=== PATIENT | male | born 1950 | race Caucasian/White ===

== ENCOUNTER 2023-08-20 22:02 | Outpatient (CLI) | payer OTHER | END 2023-08-20 23:59 | disposition critical access hospital (66) | LOC: EMS 22:02 | DX: R55 Syncope and collapse (principal); R23.1 Pallor | CPT/HCPCS: A0425; A0427 ==

== ENCOUNTER 2023-08-20 22:15 | Emergency (ER) | payer MEDICARE, OTHER ==
[2023-08-20 22:40] LABS: BASOPHILS # (AUTO) 0.1 10^3/uL (0.0-0.1); EOSINOPHILS # (AUTO) 0.5 10^3/uL (0.0-0.7); EOSINOPHILS % (AUTO) 8.1 %; HCT - HEMATOCRIT 36.4 % (42.0-52.0); HGB - HEMOGLOBIN 11.9 g/dL (14.0-18.0); LYMPHOCYTES # (AUTO) 1.2 10^3/uL (1.5-3.5); MEAN CORPUSCULAR HEMOGLOBIN 36.2 pg (27.0-31.0); MEAN CORPUSCULAR HGB CONC 32.7 g/dL (32.0-36.0); MEAN CORPUSCULAR VOLUME 110.6 fL (80.0-94.0); MEAN PLATELET VOLUME 11.3 fL (7.4-11.4); MONOCYTES # (AUTO) 0.9 10^3/uL (0.0-1.0); MONOCYTES % (AUTO) 14.3 %; NEUTROPHILS # (AUTO) 3.5 10^3/uL (1.5-6.6); NEUTROPHILS % (AUTO) 56.5 %; PLT - PLATELET COUNT 153 10^3/uL (130-450); RED BLOOD COUNT 3.29 10^6/uL (4.70-6.10); RED CELL DISTRIBUTION WIDTH 12.9 % (12.0-15.0); WHITE BLOOD COUNT 6.2 x10^3/uL (4.8-10.8)
[2023-08-20 22:44] LABS: SLIDE REVIEW? Indicated
--- NOTE | 2023-08-20 22:49 | XRAY Report ---
PROCEDURE: Chest 1V INDICATIONS: syncopal episode TECHNIQUE: One view of the chest was acquired. COMPARISON: None. FINDINGS: Surgical changes and devices: None. Lungs and pleura: No pleural effusions or pneumothorax. No focal airspace disease. Mediastinum: Mediastinal contours appear normal. Heart size is enlarged. Bones and chest wall: No suspicious bony lesions. Overlying soft tissues appear unremarkable. IMPRESSION: Mild cardiomegaly without acute cardiopulmonary abnormalities. Reviewed by: Wally Cooper MD on 08/20/2023 10:48 PM PDT Approved by: Wally Cooper MD on 08/20/2023 10:48 PM PDT Station ID: [id number]
[2023-08-20 22:58] LABS: ALBUMIN 3.7 g/dL (3.2-5.5); ALBUMIN/GLOBULIN RATIO 1.4 (1.0-2.2); BILIRUBIN,TOTAL 0.4 mg/dL (0.2-1.0); CALCIUM 9.1 mg/dL (8.5-10.3); CREATININE 1.5 mg/dL (0.6-1.3); POTASSIUM 3.3 mmol/L (3.5-4.5); TOTAL PROTEIN 6.4 g/dL (6.4-8.9); TROPONIN I HIGH SENSITIVITY 4.5 ng/L (2.3-19.7)
[2023-08-20 23:10] LABS: PLATELET ESTIMATE, MANUAL NORMAL (130-450,000) (NORMAL); PLATELET MORPHOLOGY NORMAL APPEARANCE (NORMAL)
[2023-08-20 23:21] VITALS: O2SAT 99
--- NOTE | 2023-08-20 23:27 | ED Physician Documentation ---
History of Present Illness - Stated complaint Stated Complaint: NEAR SYNCOPE - Chief complaint Chief Complaint: Cardiac - History obtained from History obtained from: Patient, Family (spouse (in ED at patient's bedside)) - Additonal information Additional information: HPI from patient as well as patient's spouse who is in the ED at patient's bedside. FREDDIE. Shortly after eating dinner tonight, the patient was then seated on his couch and fell asleep. He subsequently woke up and has some difficulty with recall of events at that moment. The patient's says that she was in the same room and heard patient calling to her for help. She then went to check on patient and found him to be slow to verbally respond, and appeared "zhou" regarding his skin color. She does not think the patient completely lost consciousness at any point although she says he was mostly staring with poor eye contact. Patient was already improving by the time EMS arrived, although they noted initial SBP of 90. By the time of this evaluation (my H&P), the patient is AAOx3 and says he feels completely back to his baseline. He denies having, nor having had, chest pain, shortness of breath, headache. He does not recall feeling weakness. He has not had episodes like this in the past. Review of Systems Eyes: reports: Reviewed and negative Cardiac: reports: Reviewed and negative Respiratory: reports: Reviewed and negative GI: reports: Reviewed and negative Neurologic: reports: Near syncope, Altered mental status. denies: Generalized weakness, Focal weakness, Headache, Head injury, LOC PD PAST MEDICAL HISTORY - Past Medical History Past Medical History: Yes Cardiovascular: Congestive heart failure, Hypertension - Past Surgical History Past Surgical History: Yes - Allergies Allergies/Adverse Reactions: Allergies Allergy/AdvReac Type Severity Reaction Status Date / Time No Known Drug Allergies Allergy Verified 08/20/23 22:23 - Social History Does the pt smoke?: No Smoking Status: Never smoker PD ED PE NORMAL - Vitals Vital signs reviewed: Yes - General General: Alert and oriented X 3, No acute distress, Well developed/nourished - HEENT HEENT: PERRL, EOMI - Neck Neck: Supple, no meningeal sign - Cardiac Cardiac: RRR, No murmur - Respiratory Respiratory: No respiratory distress, Clear bilaterally - Abdomen Abdomen: Soft, Non tender - Derm Derm: Normal color, Warm and dry - Neuro Neuro: Alert and oriented X 3, process development chemist 2-12 intact, No motor deficit, No sensory deficit, Normal speech Eye Opening: Spontaneous Motor: Obeys Commands Verbal: Oriented GCS Score: 15 - Psych Psych: Normal mood, Normal affect Results - Vitals Vitals: Vital Signs - 24 hr 08/20/23 08/20/23 08/20/23 22:20 22:25 23:15 Temperature 36.5 C Heart Rate 60 61 71 Respiratory 18 12 Rate Blood Pressure 102/62 121/68 O2 Saturation 98 99 08/20/23 23:57 Temperature Heart Rate 62 Respiratory 18 Rate Blood Pressure 102/75 O2 Saturation 99 Oxygen O2 Source Room air - EKG (time done) No standard instances EKG releavant findings:: EKG personally interpreted by author of this note. Relevant findings are: Rate: Rate (enter#) (63) Rhythm: NSR [place]: Normal Intervals: Normal [place] QRS: Normal Ischemia: Normal ST segments, Non specific changes (flat T II, aVF and inverted T III) - Labs Labs: Laboratory Tests 08/20/23 08/20/23 08/20/23 22:34 22:34 22:34 WBC 6.2 RBC 3.29 L Hgb 11.9 L Hct 36.4 L MCV 110.6 H MCH 36.2 H MCHC 32.7 RDW 12.9 Plt Count 153 MPV 11.3 Neut # (Auto) 3.5 Lymph # (Auto) 1.2 L Faulkner # (Auto) 0.9 Eos # (Auto) 0.5 Baso # (Auto) 0.1 Absolute Nucleated RBC 0.00 Nucleated RBC % 0.0 Manual Slide Review Indicated Platelet Estimate NORMAL (130-450,000) Platelet Morphology NORMAL APPEARANCE RBC Morph Micro Appear 2+ STOMATOCYTES Sodium 138 Potassium 3.3 L Chloride 104 Carbon Dioxide 25 Anion Gap 9.0 BUN 44 H Creatinine 1.5 H Estimated GFR (MDRD) 46 L Glucose 122 H Calcium 9.1 Total Bilirubin 0.4 AST 40 ALT 49 Alkaline Phosphatase 50 Troponin I High Sens 4.5 B-Natriuretic Peptide 48 Total Protein 6.4 Albumin 3.7 Globulin 2.7 Albumin/Globulin Ratio 1.4 Lipase 29 - Rads (name of study) cxr Relevant Findings:: Prelim report reviewed, See rad report PD Medical Decision Making - ED course Complexity details: reviewed results, re-evaluated patient, considered differential, d/w patient, d/w family ED course: Description of tonight's event from patient and his spouse are suggestive of near-syncopal episode. By the time of my H&P, the symptoms have entirely resolved and the patient says he feels well and is requesting discharge home. There are no concerning nor diagnostic findings on chest x-ray, EKG. Unremarkable CBC. Mild hypokalemia noted (potassium 3.3), with mildly elevated kidney function tests (BUN 44, creatinine 1.5, GFR 46). Normal high-sensitivity troponin (4.5), normal BNP (48). There are no previous results in [place] for comparative purposes. The etiology of tonight's episode is not apparent at this time. Results discussed with patient, return precautions carefully reviewed. I advised him to contact PCP to arrange for the next available appointment for reevaluation even if his symptoms do not recur. I also advised him to take his blood pressure on a daily basis, ideally twice per day, recording the results and bringing these to his next PCP appointment. Departure - Departure Disposition: 01 Home, Self Care Clinical Impression: Near syncope Condition: Good Instructions: ED Near Syncope Unkn Follow-Up: MEGHANN SOLIZ MD [Primary Care Provider] - Comments: There were a few abnormalities on tonight's tests, none of which are to a concerning extent nor explicatory regarding the symptoms you experienced tonight. Your potassium was slightly below normal range (3.3), and your kidney function tests are abnormally elevated (BUN 44, creatinine 1.5). I do not have any previous results available for comparative purposes, so I am listing the results here for you to pass along to your primary care provider. As we discussed, I recommend you contact your primary care provider's office tomorrow morning when the office opens to arrange for the next avail appointment for a follow-up/reevaluation. Discharge Date/Time: 08/20/23 23:57
[2023-08-20 23:59] VITALS: BP 102/75
== END 2023-08-20 23:57 | disposition home or self-care (01) ==
LOC: ED 22:15
DX: R55 Syncope and collapse (principal); E87.6 Hypokalemia; R79.89 Other specified abnormal findings of blood chemistry
CPT/HCPCS: 36415; 80053; 83690; 83880; 84484; 85025; 93005; 99283; 99284